=== PATIENT | female | born 1955 | race Caucasian/White ===

== ENCOUNTER 2019-03-20 10:44 | Inpatient (IN) | payer MEDICARE, SELFPAY ==
[2019-03-06 12:41] VITALS: BMI 28.1
[2019-03-20] VITALS (18 sets, daily range): BP systolic 114–151; BP diastolic 54–99; PULSE 64–89; RESP 10–18; TEMP 36.1–36.6; O2SAT 92–98; BMI 28.4
--- NOTE | 2019-03-20 | DI.RAD.S_ITS ---
PROCEDURE: XR CERVICAL SPINE 2V OR 3V INDICATIONS: C-4-5-6-7 ACDF FINDINGS: 2 limited intraoperative fluoroscopically stored images of the cervical spine were obtained for intraoperative hardware localization purposes. These images are not meant for diagnostic purposes. Intraoperative findings related to a anterior cervical discectomy and fusion extending from C4-C7 are present. IMPRESSION: Intraoperative images obtained during the patient's anterior cervical discectomy and fusion procedure. Dictated by: Matthew Kaiser M.D. on 03/20/2019 at 14:50 Approved by: Matthew Kaiser M.D. on 03/20/2019 at 14:53
[2019-03-20] MEDS: LACTATED RINGERS 1,000 ML 42 ML IV (11:31)
--- NOTE | 2019-03-20 11:53 | PM.PREOP ---
Pre-operative Note Interval Note History & Physical reviewed/Exam performed by Physician: Yes Changes to H&P: No
[2019-03-20] MEDS: CEFAZOLIN 2 GM/100 ML FROZ.PIGGY IV ×2 (12:53→21:07)
--- NOTE | 2019-03-20 13:27 | SUR.OPER ---
Supine on padded OR bed, head on gel pad, towel under shoulder blades. arms wrapped in gel pad, papoosed and secured with draw sheet by towel clips. Legs uncrossed, safety belt at thigh, tape over blanket over lower legs. Surgeon and PA taped from shoulders to foot of bed.
--- NOTE | 2019-03-20 15:32 | PM.OP.1 ---
Operative Date/Time/Diagnoses Date of procedure: 03/20/19 Time of procedure: 13:32 Pre-op diagnosis: 1. C4-5, C5-6, C6-7 spinal stenosis 2. C4-5, C5-6, C6-7 spondylolisthesis 3. C4-5, C5-6, C6-7 spoondylosis with radiculopathy 4. C5-6 epidural cyst Post-op diagnosis: same Procedure & Clinicians Procedure: 1. C4-5 C5-6 C6-7 anterior cervical diskectomy and fusion 2. C4-5 C5-6 C6-7 anterior interbody cage placement 3. C4-5 C5-6 C6-7 anterior instrumentation with plate and screw placement in C4-C5-C6 and C7 vertebrae 4. Utilization of microsurgical technique and operating microscope Same procedure as scheduled: Yes Indications: Patient has been having chronic neck pain and worsening cervical radiculopathy. Patient failed multiple conservative management with worsening pain weakness and numbness in her upper extremity. Patient has been having difficulty performing activity of daily living. After discussing risks benefits of treatment options, patient elected proceed with surgery. Surgeon: Shena Faust Ship Steward: Eve Lagos Click Yes if Unassisted: No Anesthesia Type: General Operative Notes Closure Type: primary Specimen(s): none sent Prosthetic devices, grafts, tissues, transplants, or devices: Globus Extend plate, Peek cages Applied: catheter Estimated Blood Loss (mL): 50 Blood products transfused: none Procedure in detail: Patient was seen in the preoperative area. Risks and benefits of the surgery was discussed with the patient. Operative consent was obtained and placed in the chart. Patient was then taken to the operative room. Prophylactic antibiotic was given less than 0.5 hr prior to skin incision. General anesthesia was administered. Patient was placed into a supine position on her radiolucent table. Bilateral shoulders were taped down to allow proper C-arm imaging. Anterior cervical area was prepped and draped in a sterile fashion. Time-out was performed at this time. Using lateral C-arm imaging, the level between C4 and C7 was identified and marked on patient's neck. A oblique incision from midline towards medial border of sternocleidomastoid muscle was made. The platysma muscle was incised in line with skin incision. Metzenbaum scissor was used to develop the plane between the medial border of sternocleidomastoid d and the strap muscles medially. The carotid sheath and its contents were identified and protected behind the hand-held retractor during the entire case. The plane between the carotid sheath and strap muscles was developed with Metzenbaum scissors. Dissection was made down to the level of the anterior cervical fascia. Longus colli muscle was incised on the anterior aspect of vertebral bodies bilaterally from C4-C7. Spinal needle was placed into the C4-5 disc space and confirmed with lateral C-arm imaging. Using microsurgical technique and operative microscope, anterior cervical diskectomy was performed at C4-5 C5-6 and C6-7 level. This was done by removing the disc material, removing the anterior and posterior osteophytes posterior longitudinal ligaments along with performing bilateral foraminotomies at all 3 levels. The C5-6 epidural cyst was found and was resected during the process of decompression. Part of the cyst capsule was attached to the dura and was left intact since attempted removal of additional cyst capsule cause potential damage to the dura. Patient was found to have severe central and foraminal stenosis at all 3 levels. Patient's stenosis was fully decompressed after decompression was completed. After the diskectomy was completed, 3 anterior interbody cages were obtained. The cages were packed with globus via cell bone grafting material. One cage each along with the bone grafting material was then packed into the interbody spaces from C4-C7 with one cage into each interbody level. After the cages were placed, the anterior cervical plate was stabilized to the C4-C7 vertebrae using 2 screws at each each level. Total 8 screws were placed. After confirming placement of the hardware with AP and lateral C-arm imaging, the screws were locked into the plate using the locking mechanism and torque limiting screwdriver. After the hardware was placed and confirmed with AP and lateral C-arm imaging, the wound was irrigated with sterile normal saline. The platysma muscle and the subcutaneous tissue was closed with 2-0 Vicryl. The skin was closed with 4-0Monocryl and Steri-Strips. Patient tolerated the procedure well. Patient was transferred recovery room in stable condition. There were no complications. Complications: none Post-operative Condition: stable Disposition: PACU Plan for aftercare: Admit to inpatient hospital
[2019-03-20] MEDS: HYDROMORPHONE 2 MG INJ 0.5 MG IV ×2 (16:00→16:06)
[2019-03-20] MEDS: SODIUM CHLORIDE 0.9% 1,000 ML 100 ML IV (17:46)
[2019-03-20] MEDS: ACETAMINOPHEN 325 MG TABLET 650 MG PO (19:25)
[2019-03-21] MEDS: ACETAMINOPHEN 325 MG TABLET 650 MG PO ×3 (01:36→11:55)
[2019-03-21] MEDS: CEFAZOLIN 2 GM/100 ML FROZ.PIGGY IV (04:29)
[2019-03-21 06:07] VITALS: BP 142/59; PULSE 86; RESP 16; TEMP 36.8; O2SAT 97
[2019-03-21 08:00] VITALS: BP 142/71; PULSE 89; RESP 16; TEMP 37.1; O2SAT 95
--- NOTE | 2019-03-21 08:12 | PM.DS.1 ---
History of Present Illness History of Present Illness Date Patient Seen: 03/21/19 Time Patient Seen: 08:12 Chief complaint: [id number] Narrative: POD 1 s/p ACDF w Dr. Faust. No acute events overnight. Patient complains of mild pain in her neck. Pain well managed with tylenol. Patient will ambulate with PT today. Has urinary catheter in place. Patient denies fever, chills, nausea, vomiting, chest pain, shortness of breath. Discharge Providers Provider Date of admission: 03/20/19 10:44 Discharge Date: 03/21/19 Primary care physician: Ricardo Darby Consults: 03/20/19 16:55 Consult to Occupational Therapy Evaluate & Treat Comment: Physician Instructions: Evaluate and treat Consult to Physical Therapy Evaluate & Treat Comment: Physician Instructions: Evaluate and Treat Discharge provider: Xiomara Knott PA-C Summary Hospital Course Discharge Diagnosis: s/p ACDF Hospital Course: Patient admitted to hospital s/p ACDF with Dr. Faust. Hospital course was unremarkable. POD 1 patient was ready for discharge home. Patient was mobilizing with PT/OT prior to discharge. Pain was managed with tylenol and was prescribed tylenol for home. Patient was voiding and eating without difficulty or assistance prior to discharge. Status at Discharge Cognitive/behavioral status at discharge: oriented Functional status at discharge: independent ambulation Overall status at discharge: patient is progressing back to baseline Time Spent with Patient Time spent: Less than 30 minutes Exam Vital Signs (past 8 hours): - 03/21/19 06:07 Temperature 98.3 F Pulse Rate 86 Respiratory Rate 16 Blood Pressure 142/59 H Pulse Oximetry 97 Oxygen Delivery Method Room Air Narrative Exam Narrative: 63 year old female is sitting upright in bed, in no apparent distress. A&Ox3. Dressing CDI, soft collar in place. Sensory function grossly intact to light touch in LE bl. Calves warm, soft, compressible, nttp. Posterior tibialis 2+ bl. Capillary refill <2sec LE bl. Patient able to actively dorsiflex/plantar flex bl. Discharge Plan Discharge Plan Patient Disposition: Home Discharge comment: discharge home pending PT eval Discharge Med Rec/Prescriptions Prescriptions: New acetaminophen [Tylenol Extra Strength] 500 mg tablet 500 mg PO Q4H PRN (Reason: pain (scale score 1-3)) Qty: 60 RF: 0 Follow up/Referrals: Ricardo Darby [Primary Care Provider] - Shena Faust MD [Physician] - Provider Discharge Instructions Diet: Regular Activity: no excessive bending, lifting, twisting Cold/Heat Therapy: continue cold/heat therapy as needed Skin/Wound/Dressing Care Report to your healthcare provider any signs of infection, such as:: chills, fever, increased pain, unusual drainage and unusual redness Dressing: keep dressing dry. if saturated please contact the office Visit Report/Discharge Packet Stand Alone Forms: Surgery Discharge Discharge Data Primary Care Provider: Ricardo Darby Quality VTE Deep Vein Thrombosis/Pulmonary Embolism Present on Admission: No
--- NOTE | 2019-03-21 09:00 | OT.IP.EVAL ---
Current Diagnoses Other spondylosis with radiculopathy, cervical region (03/20/19) Spinal stenosis, cervical region (03/20/19) Surgery Performed Operation Date: 03/20/19 12:45 Actual Procedures p C4-5,C5-6,C6-7 ACDF w/ anterior instrumentation - Shena Faust MD Past Medical History (Last Updated 03/06/19 @ 13:08 by Savi Phipps, RN) Arthritis (Acute) Numbness and tingling (Acute) Pneumonia (Acute ~2015) Surgical History (Last Updated 03/06/19 @ 13:08 by Savi Phipps RN) History of tonsillectomy and adenoidectomy (Acute) Hx of bilateral cataract extraction (Acute) Hx of cholecystectomy (Acute ~07/1995) Hx of tubal ligation (Acute ~02/1999) Occupational Therapy Inpatient Evaluation/Re-Eval M1 PT/OT-IP Prior Functional Status Start: 03/21/19 09:34 Freq: NEEDED Status: Active Protocol: Document 03/21/19 09:35 [facility] (Rec: 03/21/19 09:57 [facility] [id number]) Medical Review Prior Functional Status Medical History Reviewed Yes Communication Independent. Mobility and Gait Independent and did not use any devices. Activities of Daily Living and IADL's Completely independent with all ADl's, IADl's, does medications and finances , and taking care of her father and who has Parkinson's. Social History Household Members spouse,family Living Arrangements House Number of Floors (Floors) One Floor, one step form the garage with no hand rails. Home Environment Standard Height Toilet,Walk in Shower,Tub/Shower Home Equipment Hand Held Shower,Grab Bars Near Toilet,Grab Bars In Shower M2 OT-IP Current Condition Start: 03/21/19 09:34 Freq: Status: Active Protocol: Document 03/21/19 09:35 [facility] (Rec: 03/21/19 09:57 [facility] [id number]) Occupational Therapy Current Condition Current Condition Evaluation Date 03/21/19 Treatment Diagnosis S/P C4-C7 ACDF with ant. fusion Post Operative Precautions Cervical Spine Precautions Soft Collar for Comfort,No Heavy Lifting,Log Roll M3 OT- IP Subjective and Pain Start: 03/21/19 09:34 Freq: Status: Active Protocol: Document 03/21/19 09:35 [facility] (Rec: 03/21/19 09:57 [facility] [id number]) OT- Subjective Occupational Therapy Visit Type Type Initial Evaluation Visit Start Time 09:00 Visit Stop Time 09:29 Total Visit Minutes 29 Occupational Therapy Visit Comments Patient Comments Pt wanting to get up for OT eval. Patient/Caregiver Goals To go home later. OT Pain Assessment Pain When Pain Assessed At Rest Pain Present Pain Present Denied Pain M4 OT- IP ADL's Start: 03/21/19 09:34 Freq: Status: Active Protocol: Document 03/21/19 09:35 [facility] (Rec: 03/21/19 09:57 [facility] [id number]) OT [id number] Comments OT Self-Feeding Comments Per pt had difficulty to swallow her pills last night. Educated pt on use of carrier to help and also went over swallowing information with pt . Pt able to states good understanding. OT ADL-Grooming General Evaluation Grooming Ability Independent Areas Needing Assistance Retrieving/Set-up of Grooming Items Comments OT Grooming Comments Educated to bend at the hips versus bend at neck to spit into the sink. OT ADL-Oral Care General Eval Oral Care Ability Independent OT ADL-Dressing General Eval Upper Body Dressing Ability Independent Lower Body Dressing Ability Standby Assistance Areas Needing Assistance Retrieving/Set-up of Clothing Comments OT Dressing Comments VC to slow down, pt states has a stool at home and therefore will be easier to juan manuel clothing for LB dressing needs . SBA while pt standing to pull up brief over her hips. Pt able to juan manuel/doff soft collar after education. OT ADL-Toileting General Evaluation Toileting Ability Standby Assistance Comments OT Toileting Comments SBA for toileting needs as pt states feeling a little dizzy after getting to the toilet. OT ADL-Bathing Comments OT Bathing Comments Pt wanting to shower at home. Pt uses tub/shower and has a grab bar and HHSP. Suggested pt may want to use a shower chair initially for safety. M5 OT- IP IADL's Start: 03/21/19 09:34 Freq: Status: Active Protocol: Document 03/21/19 09:35 [facility] (Rec: 03/21/19 09:57 [facility] [id number]) OT-Instrumental Activities of Daily Living Medication Management Medication Management No Deficits Identified Money Management Money Management No Deficits Identified Director Life Insurance Director Life Insurance Comments Pt has hired someone to assist to clean the house. M6 OT- IP Functional Cognition Start: 03/21/19 09:34 Freq: Status: Active Protocol: Document 03/21/19 09:35 [facility] (Rec: 03/21/19 09:57 [facility] [id number]) Cognitive Factors Limiting Selfcare Function Cognitive Ability Level of Alertness Alert Patient Orientation Name,Age,Birthday,Month,Date, Year,Day of Week,Place, Situation Attention Span Ability Capable of Focused Attention, Capable of Sustained Attention Ability to Follow Commands Able to Follow Multi-Step Commands Memory Description No Deficits Noted Safety Awareness Decreased Ability to Apply Precautions,Underestimates Need for Assistance Cognitive Comments Cognitive Assessment Comments Pt needing vc to slow down and to incorporate cervical precautions, pt tends to want to twist at her neck too much when moving and especially when trying to talk to someone . Educated to be sure to turn around moving body and head at the same time to decrease twisting. OT- Vision and Hearing OT- Hearing Assessment OT- Hearing Assessment WFL OT- Vision Assessment Visual Acuity WFL M7 OT- IP Mobility and Balance Start: 03/21/19 09:34 Freq: Status: Active Protocol: Document 03/21/19 09:35 [facility] (Rec: 03/21/19 09:57 [facility] [id number]) OT- Bed Mobility Assessment Rolling Type of Rolling Roll to Right Level of Assistance Standby Assistance Supine to Sit Supine to Sit Assist Standby Assistance Sit to Supine Sit to Supine Assist Standby Assistance Scooting Scooting to Edge of Bed Standby Assistance OT-Transfer Assessment Sit to and From Stand Sit to and from Stand Standby Assistance Transfers Transfer Ability Standby Assistance Technique Transfer Destination Bed,Chair,Toilet Transfer Technique Stand Step Pivot Devices Transfer Assistive Devices None Comments Mobility Comments Pt needing vc for proper technique of log rolling , initially pt wanting to sit up into long sitting and educated to do log rolling when bed is flat. OT- Gait Assessment Gait Gait Assistance Required: Standby Assistance Assistive Devices Assistive Device None OT- Balance Assessment Sitting Balance and Reactions Static Sitting Balance Ability Normal Dynamic Sitting Balance Ability Normal Standing Balance and Reactions Static Standing Balance Ability Good Dynamic Standing Balance Ability Fair Comments Other Balance Tests/Deviations/Treatment Mainly vc to slow down and not : to twist at her neck. M8 OT- IP Objective Assessments Start: 03/21/19 09:34 Freq: Status: Active Protocol: Document 03/21/19 09:35 [facility] (Rec: 03/21/19 09:57 [facility] [id number]) OT Gross Range of Motion Upper Extremity Range of Motion Assessment Within Functional Limits OT- Coordination Assessment Upper Extremity Finger to Nose Test Within Functional Limits M9 OT- IP Assessment and Plan Start: 03/21/19 09:34 Freq: Status: Active Protocol: Document 03/21/19 09:35 [facility] (Rec: 03/21/19 09:57 [facility] [id number]) OT Summary Assessment and Plan Potential Rehabilitation Potential Excellent Analytic Complexity at Evaluation Low Summary OT Impairments Functional Mobility Progress Towards Goals Progressing Toward Goals Assessment Summary Pt low complexity and main barrier are needing reminders for cervical precautions as tends to want to twist her neck too much and also needing cues to slow down. Pt looking to go home today and realizes that she will hold off in doing IADl needs and try to slow down. Goals Bathing Goal Standby Assistance Patient/Caregiver Education Goal Demonstrate Post-Op Precautions Days to Meet Goals 1 Frequency of Treatment Frequency Of Treatment Once a Day Treatment Plan OT Treatment Plan ADL Training,Functional Mobility,Patient/Family Education,Discharge Planning Other Treatment Recommendations and Next Shower if still here, and Treatment Focus incorporation of cervical precautions. Discharge Recommendations OT Discharge Recommendations Home with Assistance Home Equipment Needs shower chair
--- NOTE | 2019-03-21 09:16 | CM.DANOTE ---
DCP/Assessment: Reviewed chart. Patient is a 63yr old female admitted to [facility] for elective spine surgery with Dr. Faust performed on 03-20-19. PCP is Dr. Ricardo Darby. Primary payor is 1)Medicare 2)[facility]. Met with patient explained CM/SW role. Patient alert and oriented resting in bed at time of visit. Patient reports that she hopes to d/c home today. Patient resides with her spouse and 94yr old father. Patient I with ADL's prior to surgery. Patient resides in [address] [place] and drives at baseline. Patient currently with PT/OT evaluations pending. Patient does report that her spouse has Parkinson's and she is primary caregiver to her 94yr old father. Patient indicates that she has made arrangements for both during her recovery. Patient with friends/family assisting. P: Anticipate home when medically stable. CM team to continue to follow if needs were to arise. FRANCISCO Jin Discharge Planning/Care Management CM Discharge Assessment Start: 03/21/19 09:12 Freq: Status: Active Protocol: Document 03/21/19 09:13 [facility] (Rec: 03/21/19 09:16 [facility] [id number]) Discharge Planning Assessment Assigned Contact Lens Blocker FRANCISCO Jin Contact Information Isiah Mendosa (spouse) Advance Directives? Yes Advance Directives on File No History Provided By Patient,Medical Record Prior Living Arrangements House Household Members spouse,family Type of transporation used prior to Drives own vehicle admit Independent with ADL's Yes Is patient alert and oriented? Yes Caregiver for Another Yes DME Already Rented / Owned FWW / Walker Barriers to Discharge No Discharge Plan Home Transportation Arrangement Spouse to provide transport. Whiteboard Updated in Patient Room with Yes name and ext. # of Contact Lens Blocker Review Status In Process Next Review Type Continued Stay Review Pre-Anesthesia Assessment Start: 03/06/19 12:40 Freq: Status: Complete Protocol: Document 03/06/19 12:41 [facility] (Rec: 03/06/19 13:27 [facility] [id number]) Pre-Anesthesia Assessment Patient Information Reviewed Via Phone Assessment Assessment Completed With Patient Diagnostic Results EKG Comment Outside labs/EKG x 2 scanned to record, Primary Care Provider Ricardo Darby Seen Specialist in Last 12 Months Yes Specialist Seen Orthopedist Primary Language [employer] Faculty Member Required No Height 160.02 cm Weight 72.121 kg Body Mass Index (BMI) 28.1 Hearing Ability Normal Visual Impairment No Limitations Visual Assist None Dentition Type Teeth, Natural Present Barriers to Learning None Other Aids No Hx Anesthesia Reactions No Hx Family Anesthesia Reaction No Hx Malignant Hyperthermia No Hx Blood Transfusions No Anesthesia Review Requested No alcohol intake never Smoking Status Never smoker Substance Use Type does not use Pain Present Pain Reported Musculoskeletal Symptoms Limited Range of Motion,Neck Pain,Numbness,Tingling History of Falling (Recent or History of No ) Patient is completely paralyzed or No completely immobile Mental Status Oriented to own ability Is patient on oxygen? No Does patient have GOMES/SOB No Hx Sleep Apnea No Currently Taking a Beta Grace No Can You Climb a Flight of Stairs Without Yes SOB Hx Chest Pain No Hx SOB No Hx Syncope or Dizziness Yes: Dizziness r/t neck Anti-Coagulant Therapy No Has a Software Consultant No Cardiac Testing No Hx Pacemaker/ICD No Pacemaker Rep Required? No Cardiac Clearance Received Not Applicable Diet Type At Home Regular dysphagia No Urinary Catheter Present No Hx Urinary Self Catheterization No Diabetes No Patient No Lactating No Hx Drug Resistant Organism No Presence of External or Internal Medical Yes: Bilateral eye lens Devices Have you traveled outside the [facility] States in the last 30 days? Marital Status Lives With spouse,family Prior Living Arrangements House Number of Floors (Floors) One Floor Support System Family,Spouse Does the Patient Have Assistance After Yes Surgery Patient Discharge Plan Description Return Home Comment has parkinson's, sister can stay to assist w/ care Feels Safe in Current Environment Yes Been Physically Hurt or Threatened By a No Person in Current Environment Do you have thoughts of harming yourself None or others? Are you currently considering suicide? No Do you have a plan to hurt yourself or No Plan others? Do You Have Any Spiritual Beliefs That No May Affect Your HC Choices? Do You Have Any Cultural Practices That No May Affect Your HC Choices? Comment [place] Who Can We Speak to About Patient's Care Family, friends Identifying Code for Release of Patient Declines to issue Information Health Care Proxy/Next of Kin Isiah () Health Care Proxy Emergency Contact Name Eufemia (daughter) Emergency Contact Advance Directives? Yes Advance Directives on File No Requested Patient Bring Advanced Yes Directives DOS Power of Quality Management Nurse Yes Power of Quality Management Nurse Name Isiah () Power of Quality Management Nurse PAC Instructions Medications to take/avoid, Nasal antibiotic,No ETOH/ petroleum product on skin DOS, NPO,Post-op transportation,Pre -surgical wash,Sturdy shoes/ comfortable clothes,Do not bring valuables and remove jewelry
--- NOTE | 2019-03-21 11:08 | PT.IIE ---
Current Diagnoses Other spondylosis with radiculopathy, cervical region (03/20/19) Spinal stenosis, cervical region (03/20/19) Surgery Performed Operation Date: 03/20/19 12:45 Actual Procedures p C4-5,C5-6,C6-7 ACDF w/ anterior instrumentation - Shena Faust MD Surgical History (Last Updated 03/06/19 @ 13:08 by Savi Phipps RN) History of tonsillectomy and adenoidectomy (Acute) Hx of bilateral cataract extraction (Acute) Hx of cholecystectomy (Acute ~07/1995) Hx of tubal ligation (Acute ~02/1999) Medical History (Last Updated 03/06/19 @ 13:08 by Savi Phipps RN) Arthritis (Acute) Numbness and tingling (Acute) Pneumonia (Acute ~2015) Physical Therapy Inpatient Evaluation/Re-Eval M1 PT/OT-IP Prior Functional Status Start: 03/21/19 09:34 Freq: NEEDED Status: Active Protocol: Document 03/21/19 10:38 AW (Rec: 03/21/19 11:06 AW [id number]) Medical Review Prior Functional Status Medical History Reviewed Yes Diet/Fluid Consistency Regular Communication Independent. Mobility and Gait Independent and did not use any devices. Activities of Daily Living and IADL's Completely independent with all ADl's, IADl's, does medications and finances , and taking care of her father and who has Parkinson's. Social History Household Members spouse,family Living Arrangements House Number of Floors (Floors) One Floor Number of Stairs To Enter/Railing? 1 ALENA, no railing Home Environment Standard Height Toilet,Walk in Shower,Tub/Shower Home Equipment Front Wheel Walker,Four Wheel Walker,Hand Held Shower, Hospital Bed,Grab Bars Near Toilet,Grab Bars In Shower Additional Social History Comment Pt cares for her spouse who has Parkinson's. She notes that his greatest need is during his most significant medication down time at night when he sometimes needs help with bed mobility. She occasionally assists him with transfers, but he typically does not require any assistance. They are both clear that pt will not be able to provide this type of assistance for the next several weeks. is independent enough not to need additional help in the home during this time. M2 PT-IP Current Condition Start: 03/21/19 08:50 Freq: NEEDED Status: Active Protocol: Document 03/21/19 10:38 AW (Rec: 03/21/19 11:06 AW [id number]) Physical Therapy Current Condition Current Condition Evaluation Date 03/21/19 Treatment Diagnosis ACDF C4-5, C5-6, C6-7, impaired mobility Onset Date 03/20/19 Precautions Cervical Spine Precautions Soft Collar for Comfort,No Heavy Lifting,Log Roll Brace soft collar only Weight Bearing Status Weight Bearing Status Full Weight Bearing M3 PT-IP Subjective Start: 03/21/19 08:50 Freq: NEEDED Status: Active Protocol: Document 03/21/19 10:38 AW (Rec: 03/21/19 11:06 AW [id number]) Subjective Physical Therapy Visit Type Type Initial Evaluation Visit Start Time 09:47 Visit Stop Time 10:03 Total Visit Minutes 16 Number of 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 Visits 0 Physical Therapy Visit Comments Patient Comments Pt is feeling good and ready to discharge Patient Goals Pt hopes to discharge home today Therapy Pain Assessment Pain When Pain Assessed During Mobility Pain Present Pain Present Denied Pain M4 PT-IP Mobility and Gait Start: 03/21/19 08:50 Freq: NEEDED Status: Active Protocol: Document 03/21/19 10:38 AW (Rec: 03/21/19 11:06 AW [id number]) PT-Bed Mobility Assessment Rolling Type of Rolling Log Rolling Level of Assist Standby Assistance Supine to Sit Supine to Sit Standby Assistance Scooting Scooting to Edge of Bed Standby Assistance PT-Transfer Assessment Sit to and From Stand Sit to and from Stand Standby Assistance Equipment Transfer Assistive Device Gait Belt Orthotic/Prosthetic Devices or Brace: Yes Transfers Transfer Destination Chair Transfer Technique pt ambulated without assistive device Transfer Ability Level of Assist Standby Assistance Comments Mobility Comments Pt mobilized out of bed and to standing without need for verbal cues, SBA. Gait Assessment Gait Gait Assistance Required: Standby Assistance Distance (Feet) 220 Able to Maintain Weight Bearing Status Yes During Gait Assistive Devices Assistive Device Gait Belt Orthotic/Prosthetic Devices or Brace: Yes Gait Deviations General Gait Pattern Within Normal Limits Factors Limiting Gait Function Factors Limiting Gait Function Limited Range of Motion Comments Gait Comments Pt ambulated ~220 feet SBA without assistive device. She demonstrated good attention to precautions. On informal dynamic gait testing, she was able to change her gait speed, navigate obstacles, and pivot stop safely with no evidence of path deviation. Stair Climbing Assessment Evaluation Level of Assist On Stairs Standby Assistance Devices Stair Climbing Assistive Devices None Technique/Endurance Stair Climbing Direction Ascend and Descend Stair Climbing Technique Step Over Step Number of Steps Climbed 3 Query Text: Stair Climbing Set # Repetitions (reps) 2 Comments Stair Climbing Comments Pt able to ascend and descend 3 steps without any device or assist. PT-Balance Assessment Sitting Balance and Reactions Static Sitting Balance Ability Normal Dynamic Sitting Balance Ability Normal Standing Balance and Reactions Static Standing Balance Ability Normal Dynamic Standing Balance Ability Good Device Used none M5 PT-IP Objective Assessments Start: 03/21/19 08:50 Freq: NEEDED Status: Active Protocol: Document 03/21/19 10:38 AW (Rec: 03/21/19 11:06 AW [id number]) Orientation Orientation/Cognition Level of Alertness Alert Orientation Name,Date,Place,Situation Language Function Ability No Deficits Noted Safety Awareness Understands Safety Issues Memory Description No Deficits Noted Gross Range of Motion Lower Extremity ROM Assessment Within Functional Limits Strength Lower Extremity Strength Assessment Within Functional Limits Comments Strength Comments BLE grossly 5/5 Coordination Assessment Gross Coordination Gross Coordination WNL Sensation Assessment Sensation Gross Sensation WNL Comments Sensation Comments Pt with history of RUE numbness/tingling reports post -op relief from those symptoms M6 PT-IP Treatment Start: 03/21/19 08:50 Freq: NEEDED Status: Active Protocol: Document 03/21/19 10:38 AW (Rec: 03/21/19 11:06 AW [id number]) Physical Therapy Treatment Education Education Provided Precautions,Safety Brace Education [place],Patient Equipment Issued Equipment Type and Company Pt educated to don/doff soft brace using mirror for visual feedback. Pt educated to continue wearing brace for comfort. She inquired about an event she will attend on . Advised pt to wear soft brace in order to avoid hugs/ postures that would compromise her neutral cervical spine. M7 PT-IP Assessment and Plan Start: 03/21/19 08:50 Freq: NEEDED Status: Active Protocol: Document 03/21/19 10:38 AW (Rec: 03/21/19 11:06 AW [id number]) PT Summary Assessment and Plan Potential Rehabilitation Potential Excellent Status of Condition at Evaluation Stable Summary Impairments ROM Assessment Summary Pt is a 63 yo woman seen on POD1 following ACDF. PLOF: Pt was independent with all mobility. She provided light assist to her spouse who has Parkinson's. CLOF: Pt required no more than SBA for all mobility, including stairs. Dynamic balance was good with changes in gait speed, pivot turns, stairs, and obstacle navigation. PT recommends discharge to home with outpatient PT when medically cleared. Frequency of Treatment Frequency Of Treatment Discharge Recommendations To Nursing Amount of Assist Needed Independent Discharge Recommendations PT Discharge Recommendations Home,Home with Assistance, Outpatient PT
--- NOTE | 2019-03-21 14:20 | ST.IPSCREEN ---
Patient screened per ACDF protocol. Patient has been able to get soft foods/liquids and pills down without difficulty, but had questions regarding advancing diet once home. Verbal education was provided to follow-up written education given to patient earlier today by OT. Patient verbalized understanding.
--- NOTE | 2019-03-21 14:27 | PC.NURSE ---
Day shift: Pt left unit via WC with her family. Taken to car by Tunde PACE. Paperwork signed and all questions answered. No new MD scrips. Dressing is CDI. Pt has all personal belongings.
== END 2019-03-21 14:29 | disposition home or self-care (01) | DRG 473 ==
PROVIDERS: Admitting Provider Orthopaedic Surgery Orthopaedic Surgery of the Spine; PCP Family Medicine; Visit Provider Orthopaedic Surgery Orthopaedic Surgery of the Spine
PROC: 0RG20A0 Fusion of 2 or more Cervical Vertebral Joints with Interbody Fusion Device, Anterior Approach, Anterior Column, Open Approach (ICD-10-PCS; principal; 2019-03-20 12:45)
DX: M48.02 Spinal stenosis, cervical region (principal); M47.22 Other spondylosis with radiculopathy, cervical region; G96.19 Other disorders of meninges, not elsewhere classified
CPT/HCPCS: 72040; 76000; 97161; 97165; 97535; C1776; J0330; J0690; J1100; J1170; J2250; J2405; J2704; J3010

== ENCOUNTER 2021-07-16 11:57 | Emergency (ER) | payer MEDICARE, SELFPAY ==
[2019-03-20 17:51] VITALS: BMI 28.4
[2021-07-16 12:23] VITALS: BP 131/62; PULSE 70; RESP 18; TEMP 36.6; O2SAT 97; BMI 25.0
--- NOTE | 2021-07-16 12:30 | DI.RAD.S_ITS ---
PROCEDURE: XR CHEST 1V INDICATIONS: chest pain TECHNIQUE: One view of the chest was acquired. COMPARISON: [facility], , XR CHEST 2 VIEWS, 09/08/2014, 20:22. FINDINGS: Surgical changes and devices: Postsurgical changes are partially visualized in the lower cervical spine. Lungs and pleura: Lungs are clear. No pleural effusions or pneumothorax. Mediastinum: Mediastinal contours appear normal. Heart size is normal. Bones and chest wall: No suspicious bony lesions. Overlying soft tissues appear unremarkable. IMPRESSION: 1. No acute cardiopulmonary disease. Dictated by: Lucian Hannah M.D. on 07/16/2021 at 13:54 Approved by: Lucian Hannah M.D. on 07/16/2021 at 13:55
[2021-07-16 12:49] LABS: Add Manual Diff / Slide Review NO; Basophils Absolute Auto 0 /uL (0-100); Basophils Percent Auto 0.8 % (0-2); Eosinophils Absolute Auto 0 /uL (0-450); Eosinophils Percent Auto 0.6 % (2-4); Hematocrit 36.2 % (36-46); Hemoglobin 12.3 g/dL (12.0-16.0); Lymphocytes Absolute Auto 1500 /uL (1100-4500); Lymphocytes Percent Auto 27.2 % (25-40); Mean Corpuscular HGB Conc 34.1 % (30-36); Mean Corpuscular Hemoglobin 27.2 PG (26-34); Mean Corpuscular Volume 79.8 fL (80-100); Monocytes Absolute Auto 700 /uL (0-900); Monocytes Percent Auto 13.2 % (3-14); Neutrophils Absolute Auto 3300 /uL (1500-7000); Neutrophils Percent Auto 58.2 % (50-75); Platelet Count 241 X10^3/uL (150-400); Red Blood Cell Count 4.53 X10^6/uL (4.0-5.2); Red Cell Distribution Width 13.2 % (11.6-14.8); White Blood Cell Count 5.6 X10^3/uL (4.5-11.0)
[2021-07-16 12:56] LABS: Prothrombin Time 11.6 SECONDS (10.1-12.7)
[2021-07-16 12:58] LABS: PTT Partial Thromboplastin Tim 29 SECONDS (26.4-36.2)
[2021-07-16 12:59] LABS: Alanine Aminotransferase 12 IU/L (<35); Albumin 4.2 g/dL (3.5-5.0); Albumin Globulin Ratio 1.1 (1.0-2.8); Alkaline Phosphatase 72 U/L (38-126); Aspartate Aminotransferase 22 IU/L (14-36); BUN Creatinine Ratio 15.7 (6-22); Bilirubin Total 0.6 mg/dL (0.2-1.3); Blood Urea Nitrogen 14 mg/dL (7-17); Calcium 8.8 mg/dL (8.4-10.2); Carbon Dioxide 27 mmol/L (22-32); Chloride 105 mmol/L (98-107); Creatine Kinase 38 U/L (30-135); Estimated Glomerular Filt Rate > 60.0 mL/min (>60); Globulin 3.7 g/dL (1.7-4.1); Glucose 106 mg/dL (80-110); HEMOLYSIS 27 (0-50); Lipase 154 U/L (23-300); Magnesium 2.1 mg/dL (1.6-2.3); Potassium 3.6 mmol/L (3.4-5.1); Sodium 140 mmol/L (137-145); Total Protein 7.9 g/dL (6.3-8.2)
[2021-07-16 13:11] LABS: Troponin I < 0.012 ng/mL (0.01-0.034)
[2021-07-16 13:16] VITALS: PULSE 75; RESP 21; O2SAT 95
--- NOTE | 2021-07-16 13:23 | ED_ITS ---
HPI - SOB/Dyspnea <CASSIDY Vazquez - Last Filed: 07/16/21 15:53> General Chief Complaint: Shortness of Breath/Dyspnea Stated Complaint: Thinks covid pneumonia. pos 10 days ago Time Seen by Provider: 07/16/21 12:52 Source: patient Mode of arrival: Ambulatory Limitations: no limitations History of Present Illness HPI Narrative: The patient is a 66-year-old female nonsmoker who denies pertinent medical history of asthma COPD or lung disorder presents with a chief complaint of thinking she might have pneumonia. She tested positive for COVID 10 days ago at home. She states she was asymptomatic at that time but has since developed productive cough, a little bit of chest pressure with deep breath, and low-grade fevers. She does have history of pneumonias concerned that she might have pneumonia. She is not vaccinated, and states that she will not get vaccinated and she does not want us to vaccinate her. She states that her chest pressure gets better she takes some slow deep breaths. She is not taking anything to feel better other than a diffusing essential oils. She states that she started feeling the chest pressure at least 3 days ago. Related Data Home Medications Medication Instructions Recorded Confirmed acetaminophen 500 mg tablet 500 mg PO Q4H PRN 07/16/21 07/16/21 (Tylenol Extra Strength) Allergies Allergy/AdvReac Type Severity Reaction Status Date / Time No Known Drug Allergies Allergy Verified 07/16/21 12:27 Review of Systems <CASSIDY Vazquez - Last Filed: 07/16/21 15:53> Review of Systems Narrative: GENERAL: See HPI HEENT: Denies sinus pain, ear pain, sore throat, difficulty swallowing, dizziness. RESPIRATORY: See HPI CARDIOVASCULAR: Denies chest pain, palpitations, orthopnea, edema, GASTROINTESTINAL: Denies nausea, vomiting, abdominal pain, diarrhea, constipation, melena. : Denies dysuria, frequency, incontinence, hematuria, urinary retention. MUSCULOSKELETAL: denies weakness, joint pain, or bony pain SKIN: Denies rash, skin lesions, or other NEUROLOGIC: Denies weakness, headache, numbness, change in speech, confusion, seizures, incoordination. PSYCHIATRIC: No concerning psychosocial issues. 12 point review of systems is negative except for those stated above Patient History <CASSIDY Vazquez - Last Filed: 07/16/21 15:53> Medical History Arthritis Numbness and tingling Pneumonia (~2015) Surgical History History of tonsillectomy and adenoidectomy Hx of bilateral cataract extraction Hx of cholecystectomy (~07/1995) Hx of tubal ligation (~02/1999) Social History household members: spouse and family Smoking Status: Never smoker alcohol intake: never Smoking Status: Never smoker alcohol intake frequency: 0-2 drinks per day Substance Use Type: does not use Exam <ROSE MARIE Vazquez - Last Filed: 07/16/21 15:53> Narrative Exam Narrative: GENERAL: This is a well-nourished, well-developed patient, in no acute distress HEAD: Atraumatic. Normocephalic. No temporal or scalp tenderness. EYES: Pupils equal round and reactive. Extraocular motions intact. No scleral icterus. No injection or drainage. ENT: Nose without bleeding, purulent drainage or septal hematoma. Throat without erythema, tonsillar hypertrophy or exudate. Uvula midline. Airway patent. NECK: Trachea midline. No JVD or lymphadenopathy. Supple, nontender, no meningeal signs. CARDIOVASCULAR: Regular rate and rhythm RESPIRATORY: Clear to auscultation. Breath sounds equal bilaterally. No wheezes, rales, or rhonchi. Occasional dry cough noted. GASTROINTESTINAL: Abdomen soft, non-tender, nondistended. No hepato- splenomegaly, or palpable masses. No guarding. EXTREMITIES: No clubbing, cyanosis, or edema. No joint tenderness, effusion, or edema noted. BACK: Nontender without deformity or crepitance. No flank tenderness. NEURO: AOx3. SKIN: No rash or erythema on visible skin Initial Vital Signs Initial Vital Signs: Vital Signs Temperature 97.8 F 07/16/21 12:23 Pulse Rate 70 07/16/21 12:23 Respiratory Rate 18 07/16/21 12:23 Blood Pressure 131/62 07/16/21 12:23 Pulse Oximetry 97 07/16/21 12:23 <Keri Birch DO - Last Filed: 07/17/21 07:52> Initial Vital Signs Initial Vital Signs: Vital Signs Temperature 97.8 F 07/16/21 12:23 Pulse Rate 70 07/16/21 12:23 Respiratory Rate 18 07/16/21 12:23 Blood Pressure 131/62 07/16/21 12:23 Pulse Oximetry 97 07/16/21 12:23 Scores <ROSE MARIE Vazquez - Last Filed: 07/16/21 15:53> GCS [place] coma scale eye opening: Spontaneous Adi coma scale verbal response: Orientated Adi coma scale motor response: Obey commands Adi coma scale total score: 15 <Keri Birch DO - Last Filed: 07/17/21 07:52> GCS [place] coma scale total score: 15 Course <ROSE MARIE Vazquez - Last Filed: 07/16/21 15:53> Orders Ordered: ED Orders 07/16/21 12:30 XR chest 1V Stat EKG-12 Lead Stat 07/16/21 12:38 Complete Blood Count AUTO DIFF Stat Comprehensive Metabolic Panel Stat D Dimer Stat Lipase Stat Magnesium Stat Partial Thromboplastin Time Stat Prothrombin Time INR Stat Troponin & CK Cardiac Panel Stat Vital Signs Vital signs: Vital Signs - 8 hr 07/16/21 12:23 07/16/21 13:16 07/16/21 13:30 Temperature 97.8 F Pulse Rate 70 75 71 Respiratory Rate 18 21 19 Blood Pressure 131/62 Pulse Oximetry 97 95 95 07/16/21 14:00 Temperature Pulse Rate 69 Respiratory Rate 20 Blood Pressure Pulse Oximetry 96 <Keri Birch DO - Last Filed: 07/17/21 07:52> Orders Ordered: ED Orders 07/16/21 12:30 XR chest 1V Stat EKG-12 Lead Stat 07/16/21 12:38 Complete Blood Count AUTO DIFF Stat Comprehensive Metabolic Panel Stat D Dimer Stat Lipase Stat Magnesium Stat Partial Thromboplastin Time Stat Prothrombin Time INR Stat Troponin & CK Cardiac Panel Stat Vital Signs Vital signs: Vital Signs - 8 hr 07/16/21 12:23 07/16/21 13:16 07/16/21 13:30 Temperature 97.8 F Pulse Rate 70 75 71 Respiratory Rate 18 21 19 Blood Pressure 131/62 Pulse Oximetry 97 95 95 07/16/21 14:00 Temperature Pulse Rate 69 Respiratory Rate 20 Blood Pressure Pulse Oximetry 96 MDM - SOB/Dyspnea <Naty Romeo, OUTSIDE [employer] SALES REPRESENTATIVE-[employer] - Last Filed: 07/16/21 15:53> Lab Data Result diagrams: 07/16/21 12:38 07/16/21 12:38 Labs: Lab Results 07/16/21 07/16/21 07/16/21 Range/Units 12:38 12:38 12:38 WBC 5.6 (4.5-11.0) X10^3/uL RBC 4.53 (4.0-5.2) X10^6/uL Hgb 12.3 (12.0-16.0) g/dL Hct 36.2 (36-46) % MCV 79.8 L (80-100) fL MCH 27.2 (26-34) PG MCHC 34.1 (30-36) % RDW 13.2 (11.6-14.8) % Plt Count 241 (150-400) X10^3/uL Neut % (Auto) 58.2 (50-75) % Lymph % (Auto) 27.2 (25-40) % [place] % (Auto) 13.2 (3-14) % Eos % (Auto) 0.6 L (2-4) % Baso % (Auto) 0.8 (0-2) % Neut # (Auto) 3300 (2770-2172) /uL Lymph # (Auto) 1500 (9639-2850) /uL [place] # (Auto) 700 (0-900) /uL Eos # (Auto) 0 (0-450) /uL Baso # (Auto) 0 (0-100) /uL PT 11.6 (10.1-12.7) SECONDS INR 1.0 (0.9-1.3) APTT 29 (26.4-36.2) SECONDS D-Dimer (<230) ng/mL Sodium 140 (137-145) mmol/L Potassium 3.6 (3.4-5.1) mmol/L Chloride 105 (98-107) mmol/L Carbon Dioxide 27 (22-32) mmol/L BUN 14 (7-17) mg/dL Creatinine 0.89 (0.52-1.04) mg/dL Estimated GFR > 60.0 (>60) mL/min BUN/Creatinine Ratio 15.7 (6-22) Glucose 106 (80-110) mg/dL Calcium 8.8 (8.4-10.2) mg/dL Magnesium 2.1 (1.6-2.3) mg/dL Total Bilirubin 0.6 (0.2-1.3) mg/dL AST 22 (14-36) IU/L ALT 12 (<35) IU/L Alkaline Phosphatase 72 (38-126) U/L Total Creatine Kinase 38 (30-135) U/L CK-MB (CK-2) TNP CK-MB (CK-2) Rel Index TNP Troponin I < 0.012 (0.01-0.034) ng/mL Total Protein 7.9 (6.3-8.2) g/dL Albumin 4.2 (3.5-5.0) g/dL Globulin 3.7 (1.7-4.1) g/dL Albumin/Globulin Ratio 1.1 (1.0-2.8) Lipase 154 (23-300) U/L 07/16/21 Range/Units 12:38 WBC (4.5-11.0) X10^3/uL RBC (4.0-5.2) X10^6/uL Hgb (12.0-16.0) g/dL Hct (36-46) % MCV (80-100) fL MCH (26-34) PG MCHC (30-36) % RDW (11.6-14.8) % Plt Count (150-400) X10^3/uL Neut % (Auto) (50-75) % Lymph % (Auto) (25-40) % [place] % (Auto) (3-14) % Eos % (Auto) (2-4) % Baso % (Auto) (0-2) % Neut # (Auto) (0355-4718) /uL Lymph # (Auto) (2168-9073) /uL [place] # (Auto) (0-900) /uL Eos # (Auto) (0-450) /uL Baso # (Auto) (0-100) /uL PT (10.1-12.7) SECONDS INR (0.9-1.3) APTT (26.4-36.2) SECONDS D-Dimer 361 H (<230) ng/mL Sodium (137-145) mmol/L Potassium (3.4-5.1) mmol/L Chloride (98-107) mmol/L Carbon Dioxide (22-32) mmol/L BUN (7-17) mg/dL Creatinine (0.52-1.04) mg/dL Estimated GFR (>60) mL/min BUN/Creatinine Ratio (6-22) Glucose (80-110) mg/dL Calcium (8.4-10.2) mg/dL Magnesium (1.6-2.3) mg/dL Total Bilirubin (0.2-1.3) mg/dL AST (14-36) IU/L ALT (<35) IU/L Alkaline Phosphatase (38-126) U/L Total Creatine Kinase (30-135) U/L CK-MB (CK-2) CK-MB (CK-2) Rel Index Troponin I (0.01-0.034) ng/mL Total Protein (6.3-8.2) g/dL Albumin (3.5-5.0) g/dL Globulin (1.7-4.1) g/dL Albumin/Globulin Ratio (1.0-2.8) Lipase (23-300) U/L Imaging Data Chest x-ray: Radiologist's Impression: [address] [place] [id number] XRay Report Signed Patient: Denise Mendosa MR#: [id number] : 1955 Acct:[id number] Age/Sex: 66 / F Date of Service: 07/16/21 Loc: ED Accession Number: [id number] ?? Procedure: XR chest 1V Ordering Provider: Keri Birch D.O. PROCEDURE:? XR CHEST 1V ? INDICATIONS:? chest pain ? TECHNIQUE:? One view of the chest was acquired.? ? COMPARISON:? [facility], , XR CHEST 2 VIEWS, 09/08/2014, 20:22. ? FINDINGS:? ? Surgical changes and devices:? Postsurgical changes are partially visualized in the lower cervical spine.? ? Lungs and pleura:? Lungs are clear.? No pleural effusions or pneumothorax.? ? Mediastinum:? Mediastinal contours appear normal.? Heart size is normal.? ? Bones and chest wall:? No suspicious bony lesions.? Overlying soft tissues appear unremarkable.? ? IMPRESSION:? ? 1.? No acute cardiopulmonary disease. ? ? ? Dictated by: Lucian Hannah M.D. on 07/16/2021 at 13:54 ? ? Approved by: Lucian Hannah M.D. on 07/16/2021 at 13:55?? [facility] Narrative Medical decision making narrative: The patient is a 58-year-old female who presents 10 days after COVID diagnosis with concern of pneumonia. Her chest x-ray is no acute findings, her lab work is reassuring with a negative troponin and D-dimer negative when corrected for age. She is oxygenating well, in no acute distress I discussed that there is no evidence of pneumonia at this point that her symptoms including cough, slight sh ortness of breath, and low-grade fevers are likely related to COVID. Encouraged rest, pushing fluids, [id number] medications as needed and able as well as follow-up with primary care provider return to the ER for acute concerns. Patient has no questions or concerns upon discharge states understanding of return precautions as well as follow-up care. <Keri Birch, DO - Last Filed: 07/17/21 07:52> Lab Data Labs: Lab Results 07/16/21 07/16/21 07/16/21 Range/Units 12:38 12:38 12:38 WBC 5.6 (4.5-11.0) X10^3/uL RBC 4.53 (4.0-5.2) X10^6/uL Hgb 12.3 (12.0-16.0) g/dL Hct 36.2 (36-46) % MCV 79.8 L (80-100) fL MCH 27.2 (26-34) PG MCHC 34.1 (30-36) % RDW 13.2 (11.6-14.8) % Plt Count 241 (150-400) X10^3/uL Neut % (Auto) 58.2 (50-75) % Lymph % (Auto) 27.2 (25-40) % [place] % (Auto) 13.2 (3-14) % Eos % (Auto) 0.6 L (2-4) % Baso % (Auto) 0.8 (0-2) % Neut # (Auto) 3300 (1478-4105) /uL Lymph # (Auto) 1500 (8296-2733) /uL [place] # (Auto) 700 (0-900) /uL Eos # (Auto) 0 (0-450) /uL Baso # (Auto) 0 (0-100) /uL PT 11.6 (10.1-12.7) SECONDS INR 1.0 (0.9-1.3) APTT 29 (26.4-36.2) SECONDS D-Dimer (<230) ng/mL Sodium 140 (137-145) mmol/L Potassium 3.6 (3.4-5.1) mmol/L Chloride 105 (98-107) mmol/L Carbon Dioxide 27 (22-32) mmol/L BUN 14 (7-17) mg/dL Creatinine 0.89 (0.52-1.04) mg/dL Estimated GFR > 60.0 (>60) mL/min BUN/Creatinine Ratio 15.7 (6-22) Glucose 106 (80-110) mg/dL Calcium 8.8 (8.4-10.2) mg/dL Magnesium 2.1 (1.6-2.3) mg/dL Total Bilirubin 0.6 (0.2-1.3) mg/dL AST 22 (14-36) IU/L ALT 12 (<35) IU/L Alkaline Phosphatase 72 (38-126) U/L Total Creatine Kinase 38 (30-135) U/L CK-MB (CK-2) TNP CK-MB (CK-2) Rel Index TNP Troponin I < 0.012 (0.01-0.034) ng/mL Total Protein 7.9 (6.3-8.2) g/dL Albumin 4.2 (3.5-5.0) g/dL Globulin 3.7 (1.7-4.1) g/dL Albumin/Globulin Ratio 1.1 (1.0-2.8) Lipase 154 (23-300) U/L 07/16/21 Range/Units 12:38 WBC (4.5-11.0) X10^3/uL RBC (4.0-5.2) X10^6/uL Hgb (12.0-16.0) g/dL Hct (36-46) % MCV (80-100) fL MCH (26-34) PG MCHC (30-36) % RDW (11.6-14.8) % Plt Count (150-400) X10^3/uL Neut % (Auto) (50-75) % Lymph % (Auto) (25-40) % [place] % (Auto) (3-14) % Eos % (Auto) (2-4) % Baso % (Auto) (0-2) % Neut # (Auto) (7514-3508) /uL Lymph # (Auto) (6127-5486) /uL [place] # (Auto) (0-900) /uL Eos # (Auto) (0-450) /uL Baso # (Auto) (0-100) /uL PT (10.1-12.7) SECONDS INR (0.9-1.3) APTT (26.4-36.2) SECONDS D-Dimer 361 H (<230) ng/mL Sodium (137-145) mmol/L Potassium (3.4-5.1) mmol/L Chloride (98-107) mmol/L Carbon Dioxide (22-32) mmol/L BUN (7-17) mg/dL Creatinine (0.52-1.04) mg/dL Estimated GFR (>60) mL/min BUN/Creatinine Ratio (6-22) Glucose (80-110) mg/dL Calcium (8.4-10.2) mg/dL Magnesium (1.6-2.3) mg/dL Total Bilirubin (0.2-1.3) mg/dL AST (14-36) IU/L ALT (<35) IU/L Alkaline Phosphatase (38-126) U/L Total Creatine Kinase (30-135) U/L CK-MB (CK-2) CK-MB (CK-2) Rel Index Troponin I (0.01-0.034) ng/mL Total Protein (6.3-8.2) g/dL Albumin (3.5-5.0) g/dL Globulin (1.7-4.1) g/dL Albumin/Globulin Ratio (1.0-2.8) Lipase (23-300) U/L Discharge Plan Departure Patient Disposition: Home Clinical Impression: COVID-19 Instructions: DI for COVID-19 (Suspected or Confirmed ), Coronavirus Disease 2019, Can COVID-19 be prevented? Activity Restrictions/Additional Instructions: Thank you for trusting us with your care today As discussed, your x-ray has no indication of pneumonia, and your lab work was very reassuring. Your symptoms are likely related to your COVID infection. Please rest and push fluids. Please use [id number] medications as needed and able follow-up with primary care provider come back to the emergency department for any acute concerns. Prescriptions: No Action acetaminophen [Tylenol Extra Strength] 500 mg tablet 500 mg PO Q4H PRN (Reason: pain (scale score 1-3)) 0RF Rx Instructions: take 1 tablet by mouth every 4 hours as needed for pain Referrals: Isabel Grissom MD [Primary Care Provider] - <Keri Birch DO - Last Filed: 07/17/21 07:52> Cosign ED Attending Coscyndieature Attestation: I was immediately available in the department for consultation. Documentation has been reviewed. I agree with assessment and plan.
[2021-07-16 13:30] VITALS: PULSE 71; RESP 19; O2SAT 95
[2021-07-16 13:52] LABS: D Dimer 361 ng/mL (<230)
[2021-07-16 14:00] VITALS: PULSE 69; RESP 20; O2SAT 96
== END 2021-07-16 14:25 | disposition home or self-care (01) ==
PROVIDERS: Emergency Medicine; Emergency Provider Nurse Practitioner Family; PCP Internal Medicine
DX: U07.1 COVID-19 (principal); R07.9 Chest pain, unspecified
CPT/HCPCS: 36415; 71045; 80053; 82550; 83690; 83735; 84484; 85025; 85379; 85610; 85730; 93005; 99283; 99284

== ENCOUNTER 2023-05-18 19:39 | Emergency (ER) | payer MEDICARE, OTHER, SELFPAY ==
[2019-03-20 17:51] VITALS: BMI 28.4
[2023-05-18 19:54] VITALS: BP 166/70; PULSE 80; RESP 18; TEMP 36.9; O2SAT 96; BMI 26.6
--- NOTE | 2023-05-18 20:44 | DI.RAD.S_ITS ---
PROCEDURE: XR CHEST 2V INDICATIONS: cough TECHNIQUE: 2 views of the chest were acquired. COMPARISON: [facility], , XR CHEST 1V, 07/16/2021, 13:12. FINDINGS: Surgical changes and devices: ACDF hardware in place. Lungs and pleura: Small linear opacity within the right medial base.. No pleural effusions or pneumothorax. Mediastinum: Mediastinal contours are normal. Heart size is normal. Bones and chest wall: No suspicious bony abnormalities. Soft tissues appear unremarkable. IMPRESSION: Small linear opacity within the right medial base, may represent atelectasis. The lungs are otherwise clear. Dictated by: Darien Osman M.D. on 05/18/2023 at 21:03 Approved by: Darien Osman M.D. on 05/18/2023 at 21:04
--- NOTE | 2023-05-18 20:44 | ED_ITS ---
HPI - URI/Sore Throat General Chief Complaint: Upper Respiratory Symptoms Stated Complaint: cough, congestion Time Seen by Provider: 05/18/23 20:37 Source: patient Mode of arrival: Ambulatory History of Present Illness HPI Narrative: This is a 68-year-old female who is otherwise healthy and a nonsmoker. She comes in with about 2-2-1/2 weeks of a cough. She has not short of breath she has not having fevers cough is productive. She is not having chest pain. Related Data Home Medications Medication Instructions Recorded Confirmed acetaminophen 500 mg tablet 500 mg PO Q4H PRN pain (scale 07/16/21 07/16/21 (Tylenol Extra Strength) score 1-3) Previous Rx's Medication Instructions Recorded doxycycline monohydrate 100 mg 100 mg PO DAILY 5 days #10 caps 05/18/23 capsule Allergies Allergy/AdvReac Type Severity Reaction Status Date / Time No Known Drug Allergies Allergy Verified 07/16/21 12:27 Patient History Medical History Arthritis Numbness and tingling Pneumonia (~2015) Surgical History History of tonsillectomy and adenoidectomy Hx of bilateral cataract extraction Hx of cholecystectomy (~07/1995) Hx of tubal ligation (~02/1999) Social History household members: spouse and family Smoking Status: Never smoker alcohol intake: never Smoking Status: Never smoker alcohol intake frequency: 0-2 drinks per day Substance Use Type: does not use Exam Initial Vital Signs Initial Vital Signs: Vital Signs Temperature 98.5 F 05/18/23 19:54 Pulse Rate 80 05/18/23 19:54 Respiratory Rate 18 05/18/23 19:54 Blood Pressure 166/70 H 05/18/23 19:54 Pulse Oximetry 96 05/18/23 19:54 Oxygen Delivery Method Room Air 05/18/23 19:54 Const General: No acute distress Neck Other: Supple no cervical adenopathy no jugular venous distention Resp Other: Breath sounds are equal bilaterally shows mild wheezing and she has a cough Cardio Other: Regular rhythm and rate no murmur or gallop Neuro General: patient alert, patient awake and patient oriented x3 Course Orders Ordered: ED Orders 05/18/23 20:44 Chest [XR chest 2V] Stat Vital Signs Vital signs: Vital Signs - 8 hr 05/18/23 23:06 Temperature 97.4 F L Pulse Rate 70 Respiratory Rate 16 Blood Pressure 144/72 H Pulse Oximetry 97 Oxygen Delivery Method Room Air MDM - URI/Sore Throat Imaging Data Chest x-ray: Radiologist's Impression: IMPRESSION: Small linear opacity within the right medial base, may represent atelectasis. The lungs are otherwise clear. Dictated by: Darien Osman M.D. on 05/18/2023 at 21:03 Approved by: Darien Osman M.D. on 05/18/2023 at 21:04 [facility] Narrative Medical decision making narrative: 68-year-old female with a cough for about 2 weeks. She has not hypoxic she has not in any respiratory distress and not having significant wheezing. Chest x- ray and presentation does not suggest heart failure. Chest x-ray does show some airspace disease may be atelectasis however given that she has got a cough and it has been fairly protracted I will treat her with antibiotics. I started a 5 day course of doxycycline. Indications for return to the emergency department I reviewed Discharge Plan Departure Patient Disposition: Home Clinical Impression: Pneumonia Qualifiers: Pneumonia type: due to unspecified organism Laterality: right Lung location: lower lobe of lung Qualified Code(s): J18.9 - Pneumonia, unspecified organism Activity Restrictions/Additional Instructions: It is common to have a persistent cough, you can try Robitussin with dextromethorphan to suppress your cough. Because chest x-ray had questionable findings for pneumonia I have started an antibiotic, start this tomorrow and take the full 5 day course. If you are having increasing shortness of breath fevers chest pain or other acute symptoms recheck in the emergency department. Resting get adequate fluids. Prescriptions: New doxycycline monohydrate 100 mg capsule 100 mg PO DAILY 5 Days Qty: 10 0RF No Action acetaminophen [Tylenol Extra Strength] 500 mg tablet 500 mg PO Q4H PRN (Reason: pain (scale score 1-3)) Rx Instructions: take 1 tablet by mouth every 4 hours as needed for pain Referrals: Isabel Grissom MD [Primary Care Provider] - Stand Alone Forms: Patient Portal/API
[2023-05-18 23:06] VITALS: BP 144/72; PULSE 70; RESP 16; TEMP 36.3; O2SAT 97
== END 2023-05-18 23:08 | disposition home or self-care (01) ==
PROVIDERS: Emergency Provider Emergency Medicine; PCP Internal Medicine
DX: J18.9 Pneumonia, unspecified organism (principal)
CPT/HCPCS: 71046; 99281; 99283

== ENCOUNTER → 2023-09-21 09:55 | Outpatient (CLI) | payer MEDICARE, OTHER, SELFPAY ==
[2019-03-20 17:51] VITALS: BMI 28.4
[2023-09-21 11:27] LABS: Cortisol AM (Before 10AM) 16.6 ug/dL (4.46-22.7)
== END ==
LOC: LAB 09:56
PROVIDERS: PCP Internal Medicine; Referring Provider Internal Medicine Cardiovascular Disease; Visit Provider Internal Medicine Cardiovascular Disease
DX: I95.0 Idiopathic hypotension (principal)
CPT/HCPCS: 36415; 82533

== ENCOUNTER → 2023-11-11 14:53 | Outpatient (CLI) | payer MEDICARE, OTHER, SELFPAY ==
[2019-03-20 17:51] VITALS: BMI 28.4
--- NOTE | 2023-11-11 14:55 | DI.NM.S_ITS ---
PROCEDURE: NM EXERCISE TREADMILL NON NUC COMPARISON: None. INDICATIONS: Idiopathic hypotension FINDINGS: The patient exercised for 7 minutes and 19 seconds reaching 97% of maximum predicted heart rate. 10.1 METs, ANN -19%. Resting ECG showed sinus rhythm with minor ST depressions in the anterolateral leads. Mild to moderate horizontal ST depressions noted in the anterolateral leads during recovery. No angina during the study. Rare PVCs present. IMPRESSION: Abnormal treadmill ECG only stress test with good exercise tolerance (ANN -19%) and no angina. Dictated by: Luda Allen MD on 11/11/2023 at 17:46 Approved by: Luda Allen MD on 11/11/2023 at 17:50
== END ==
PROVIDERS: PCP Internal Medicine; Referring Provider Internal Medicine Cardiovascular Disease; Visit Provider Internal Medicine Cardiovascular Disease
DX: R94.39 Abnormal result of other cardiovascular function study (principal); R00.2 Palpitations; I95.0 Idiopathic hypotension; R53.83 Other fatigue
CPT/HCPCS: 93017

== ENCOUNTER → 2023-11-19 15:03 | Outpatient (CLI) | payer MEDICARE, OTHER, SELFPAY ==
[2019-03-20 17:51] VITALS: BMI 28.4
--- NOTE | 2023-11-19 15:04 | DI.ECHO.S_ITS ---
[facility] : : [address] : : [place] : : [id number] : : Phone: [phone] Echocardiogram Report + + :Name: CATRACHITA BYNUM Study Date: 11/19/2023 Height: 63 in : :Hospital ReadingLocation: Weight: 131 lb : : Gender: Female BSA: 1.6 m2 : :: 1955 Age: 68 yrs BP: 127/74 mmHg: :Reason For Study: IDOPATHIC HYPOTENSION : :Ordering Physician: RAMIN, : :NEDA Performed By: Sky Hyatt : :Referring: NEDA ALLEN : + + Interpretation Summary 1) Normal left ventricular thickness, size, and systolic function (EF 55-60%). 2) Normal right ventricular size and function. 3) No significant valvular abnormalities. 4) No prior Echo available for comparison. Procedure: A two-dimensional transthoracic echocardiogram with color flow and Doppler was performed. The study quality was technically adequate. There is no prior echocardiogram noted for this patient. The patient was in sinus rhythm with heart rates between 50-67 bpm during the exam. Left Ventricle: The left ventricle is normal in size and wall thickness. The ejection fraction is estimated to be 55-60%. There are no obvious focal wall motion abnormalities noted but poor endocardial definition reduces the sensitivity for the detection of such. Right Ventricle: The right ventricle is normal size. The right ventricular systolic function is normal. Atria: The left atrium is moderately dilated. The right atrium is mildly dilated. The interatrial septum grossly appears intact with no obvious evidence for an atrial septal defect. Mitral Valve: The mitral valve is normal. There is no mitral valve stenosis. There is trace mitral regurgitation. Aortic Valve: The aortic valve is trileaflet. There is no aortic valve stenosis. There is no aortic regurgitation. Tricuspid Valve: The tricuspid valve is normal. There is no tricuspid stenosis. There is mild tricuspid regurgitation. The right ventricular systolic pressure is estimated to be at least 29.1 mmHg based on an estimated right atrial pressure of 3 mm Hg. Pulmonic Valve: The pulmonic valve is not well seen, but is grossly normal. There is no pulmonic valvular stenosis. There is mild pulmonic regurgitation. Great Vessels: The aortic root is normal size. The dimensions of the ascending aorta are normal. The IVC is of normal diameter and collapses greater than 50% with a sniff. This suggests a low right atrial pressure of 3 mm Hg. Pericardium/ Pleura There is no pericardial effusion. There is no pleural effusion. MMode/2D Measurements & Calculations LVIDd: 4.8 cm LVOT diam: 2.0 cm LVIDs: 3.0 cm Ao root diam: 3.0 cm FS: 38.6 % asc Aorta Diam: 3.1 cm IVSd: 0.74 cm LVPWd: 0.79 cm LV mars. diameter/BSA (cm/m^2): 3.0 LV sys. diameter/BSA (cm/m^2): 1.8 LA A2 area: 22.8 cm2 RA long axis: 5.3 cm LA A4 area: 17.1 cm2 RA area: 18.6 cm2 LA length (vol): 5.2 cm RA vol: 56.2 ml LA vol: 64.2 ml RA : 34.8 ml/m2 LA vol index: 39.8 ml/m2 IVC diam: 2.0 cm RVD1 (basal): 3.5 cm RVD2 (mid): 2.7 cm TAPSE: 2.3 cm Doppler Measurements & Calculations Ao V2 max: 195.3 cm/sec LVOT Max Reinier: 107.6 cm/sec Ao V2 mean: 120.3 cm/sec LV V1 max P.6 mmHg Ao max P.3 mmHg LV V1 VTI: 24.9 cm Ao mean P.8 mmHg GIANLUCA(I,D): 1.9 cm2 Ao V2 VTI: 41.7 cm GIANLUCA(V,D): 1.7 cm2 sev ratio: 0.60 GIANLUCA indexed to BSA (cm^2/m^2): 1.1 AI P1/2t: 297.5 msec AI dec slope: 192.8 cm/sec2 MV E max reinier: 65.9 cm/sec TR max reinier: 254.9 cm/sec MV A max reinier: 82.7 cm/sec TR max P.1 mmHg MV E/A: 0.80 PA V2 max: 105.1 cm/sec Med Peak E' Reinier: 6.8 cm/sec PA V2 mean: 63.0 cm/sec E/E' med: 9.6 PA mean P.9 mmHg Lat Peak E' Reinier: 7.9 cm/sec PA pr(Accel): 43.0 mmHg E/E' lat: 8.4 E/e' average: 9.0 MV dec time: 0.19 sec SV(LVOT): 77.2 ml Reading Physician:11:56 AM
== END ==
PROVIDERS: PCP Internal Medicine; Referring Provider Internal Medicine Cardiovascular Disease; Visit Provider Internal Medicine Cardiovascular Disease
DX: I07.1 Rheumatic tricuspid insufficiency (principal); I95.0 Idiopathic hypotension
CPT/HCPCS: 93306